=== PATIENT | female | born 1980 | race Caucasian/White ===

== ENCOUNTER 2016-09-17 21:35 | Emergency (ER) | payer OTHER ==
[2016-09-18] MEDS ORDERED: diphenhydrAMINE INJ 50MG/ML VIAL (J1200) As Ordered ONE (00:04)
[2016-09-18] MEDS ORDERED: METOCLOPRAMIDE INJ 10MG/2ML VIAL (J2765) As Ordered ONE (00:04)
--- NOTE | 2016-09-18 01:40 | REPUSA ---
Clinical history: . Findings: Real-time transabdominal and transvaginal ultrasound images of the pelvis were obtained. A single live intrauterine gestation is appreciated. A normal yolk sac is noted. The crown rump length measures 3.4 cm. heart rate measures 175 bpm. There is no evidence of a subchorionic hemorrhag e. An anteverted uterus is noted. The uterus demonstrates normal echotexture and echogenicity. The ri ght ovary measures 2.6 x 1.6 x 2.1 cm. The left ovary measures 2.9 x 2.1 x 2.3 cm. No adnexal masses are seen. Color Doppler flow is seen within both ovaries. There is no evidence of free fluid. Impression: Single live intrauterine measuring 10 weeks 2 days, with a heart rate of 175 bpm. Estimated due date is 04/14/2017.
--- NOTE | 2016-09-18 02:38 | EDDOCDS ---
Physician Documentation [facility] Name: Domonique Moses Age: 36 yrs Sex: Female : 1980 Arrival Date: 09/17/2016 Time: 21:35 Bed I3 / M3 Private MD: BONNIE OSBORN Disposition: 09/18/16 02:20 Discharged to Home/Self Care. Impression: Headache, Other specified related conditions. - Condition is Stable. - Discharge Instructions: General Headache Without Cause. - Medication Reconciliation, Local Pharmacy Hours form. - Follow up: Private Physician; When: 1 - 2 days; Reason: Recheck today's complaints, Continuance of care. - Problem is new. - Symptoms have improved. - Notes: FOLLOW UP WITH YOUR OB DOCTOR IN 1-2 DAYS, RETURN TO THE ER IF THE SYMPTOMS WORSEN OR BECOME CONCERNING Historical: - Allergies: Topamax; Imitrex; - Home Meds: 1. none - PMHx: Headaches; - PSHx: Tubal ligation; left pinky pin placement; - Social history: Smoking status: Patient states was never smoker of tobacco. No barriers to communication noted, The patient speaks fluent Belarusian, Speaks appropriately for age. - Family history: Not pertinent. - : The pt / caregiver states he / she is not on anticoagulants. Home medication list is obtained from the patient. - Exposure Risk Screening:: None identified. 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 3 in. (160.02 cm) (R); Pain 8/10; 09/18 02:30 BP 115 / 61; Pulse 85; Resp 18; Temp 98.3; Pulse Ox 97% ; Pain 4/10; ajs 09/17 21:37 Body Mass Index 28.34 (72.57 kg, 160.02 cm) gr2 MDM: 09/17 23:58 IV Saline Lock ordered. ck7 23:58 Metoclopramide 10 mg IV at 40 mg/hr once over 15 mins ordered. ck7 23:58 diphenhydrAMINE 25 mg IVP once ordered. ck7 23:58 NS 0.9% 1000 ml IV at bolus once ordered. ck7 23:58 Heart Tones ordered. ck7 09/18 00:19 US 1st trimester Ordered. EDMS 00:20 Financial registration complete. hs2 02:19 US 1st trimester Reviewed. ck7 Administered Medications: 00:20 Drug: Metoclopramide 10 mg [metoclopramide 5 mg/mL injection solution] Route: IV; Rate: dsf 40 mg/hr; Infused Over: 15 mins; Site: right antecubital; 00:20 Drug: diphenhydrAMINE 25 mg [diphenhydramine 50 mg/mL injection solution (0.5 mL)] dsf Route: IVP; Site: right antecubital; 00:20 Drug: NS 0.9% 1000 ml [sodium chloride 0.9 % injection solution] Route: IV; Rate: dsf bolus; Site: right antecubital; Signatures: Dispatcher [employer] EDWV Lowell De Dios, SHARIFA SKAGGS cz Aliya Francis RN RN sls1 Luis Enrique Gambino, RPA-C RPA-Cck7 Kelsie Bloom, Reg Reg hs2 Meron Escobedo RN dsf MTDD
--- NOTE | 2016-09-18 02:39 | EDDOCDS ---
Nurse's Notes [facility] Name: Domonique Moses Age: 36 yrs Sex: Female : 1980 Arrival Date: 09/17/2016 Time: 21:35 Bed I3 / M3 Private MD: BONNIE OSBORN Diagnosis: Headache;Other specified related conditions Presentation: 09/17 21:39 Presenting complaint: Patient states: headache for 24 hours pt has history of headaches cz this headache is more painful nauseated pt is 10 weeks . This patient has no additional risk factors. Adult Sepsis Screening: The patient does not have new or worsening altered mentation. Patient's respiratory rate is less than 22. Systolic blood pressure is greater than 100. Patient has a qSOFA score of 0- Negative Sepsis Screen. Suicide/Homicide risk assessment- the patient denies having any suicidal and/or homicidal ideations and does not present with any other emotional, behavioral or mental health complaints. Status: Patient is not a human services manager or dependent. Transition of care: patient was not received from another setting of care. 21:39 Acuity: KVNG Level 3 cz 21:39 Method Of Arrival: Walkin/Carried/Asstd cz Triage Assessment: 21:42 Headache History: This headache is more severe than any previous headaches the patient cz has experienced. General: Appears uncomfortable. Pain: Pain currently is 10 out of 10 on a pain scale. Pain: Pain began 1 day ago Also complains of nausea. HIV screening NA for this visit Offered previously. Neurological: No deficits noted. 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 none - PMHx: Headaches; - PSHx: Tubal ligation; left pinky pin placement; - Social history: Smoking status: Patient states was never smoker of tobacco. No barriers to communication noted, The patient speaks fluent Burmese, Speaks appropriately for age. - Family history: Not pertinent. - : The pt / caregiver states he / she is not on anticoagulants. Home medication list is obtained from the patient. - Exposure Risk Screening:: None identified. Screenin/18 02:35 Screening information is obtained from the patient. Fall risk: No risks identified. [facility] Assistance ADL's: requires no assistance with activities of daily living. Abuse/DV Screen: The patient / caregiver reports he/she is: not in a situation that causes fear, pain or injury. Nutritional screening: No deficits noted. Advance Directives: Further advance directive information is declined. home support is adequate. Assessment: 00:13 Adult Sepsis Screening: The patient does not have new or worsening altered mentation. dsf Patient's respiratory rate is less than 22. Systolic blood pressure is greater than 100. Patient has a qSOFA score of 0- Negative Sepsis Screen. General: Appears uncomfortable, Behavior is appropriate for age, cooperative. Pain: Location: left side of head Pain currently is 10 out of 10 on a pain scale. Quality of pain is described as throbbing, Pain began 2-3 days ago Aggravated by lights and noise. Neurological: Level of Consciousness is awake, alert. Cardiovascular: No deficits noted. Respiratory: Airway is patent Respiratory effort is even, unlabored, Respiratory pattern is regular, symmetrical. GI: Reports nausea, vomiting. Derm: Skin is pink, warm & dry. 00:18 General: Appears uncomfortable, Behavior is appropriate for age, cooperative, pleasant. ka4 Pain: Location: face and left supraclavicular area Pain currently is 10 out of 10 on a pain scale. Quality of pain is described as pressure, throbbing. Respiratory: Airway is patent Respiratory effort is even, unlabored, Respiratory pattern is regular, symmetrical. Derm: Skin is intact, is healthy with good turgor, Skin is pink, warm & dry. 01:14 General: Pt to ultra sound. [facility] 01:19 Reassessment: Patient appears in no apparent distress at this time. Pt returned from [facility] ultra sound tolerated without difficulty. Neurological: Level of Consciousness is awake, alert. Respiratory: No deficits noted. 02:35 General: Appears in no apparent distress, Discharge instructions reviewed with pt [facility] including follow up care, pt verbalizes understanding of all instructions. Pain: Denies pain. Neurological: Level of Consciousness is awake, alert. Vital Signs: 09/17 21:37 BP 128 / 86; Pulse 90; Resp 18 S; Temp 98.4(O); Pulse Ox 99% on R/A; Weight 72.57 kg gr2 (R); Height 5 ft. 3 in. (160.02 cm) (R); Pain 8/10; 09/18 02:30 BP 115 / 61; Pulse 85; Resp 18; Temp 98.3; Pulse Ox 97% ; Pain 4/10; ajs 09/17 21:37 Body Mass Index 28.34 (72.57 kg, 160.02 cm) gr2 Vitals: 09/17 21:37 Log In Time: September 17, 2016 at 21:37. gr2 ED Course: 21:36 Patient visited by Pedro Luis Sandoval. gr2 21:36 Patient moved to Waiting gr2 21:37 BONNIE OSBORN is Private Physician. gr2 21:39 Patient visited by Pedro Luis Sandoval. gr2 21:39 Patient moved to Pre RCE gr2 21:41 Triage Initiated cz 23:04 Patient moved to Triage 1 sls1 23:26 Luis Enrique Gambino RPA-C is PHCP. ck7 23:26 Michele Luther DO is Attending Physician. ck7 23:38 Patient visited by Luis Enrique Gambino RPA-C. ck7 23:59 Patient moved to I3 / M3 af2 09/18 00:14 Patient visited by Meron Escobedo RN. dsf 00:17 Inserted saline lock: 20 gauge in left antecubital area The patient tolerated the ka4 procedure well. 00:18 Patient visited by Nisreen Thomason LPN. ka4 00:19 Patient visited by Nisreen Thomason LPN. ka4 01:01 Patient moved to Ultrasound dmg 01:19 Patient visited by Aliya Francis RN. sls1 01:25 Patient moved to I3 / M3 dmg 02:10 US 1st trimester Returned. EDMS 02:19 Patient visited by Luis Enrique Gambino RPA-C. ck7 02:30 Patient visited by Hiwot Monterroso. ajs 02:35 The patient / caregiver is instructed regarding the plan of care and ED course. Patient slsVaughn has correct armband on for positive identification. 02:35 Discontinued lock intact, bleeding controlled, pressure dressing applied, No sls1 redness/swelling at site. No procedures done that require assistance. Administered Medications: 00:20 Drug: Metoclopramide 10 mg [metoclopramide 5 mg/mL injection solution] Route: IV; Rate: dsf 40 mg/hr; Infused Over: 15 mins; Site: right antecubital; 00:20 Drug: diphenhydrAMINE 25 mg [diphenhydramine 50 mg/mL injection solution (0.5 mL)] dsf Route: IVP; Site: right antecubital; 00:20 Drug: NS 0.9% 1000 ml [sodium chloride 0.9 % injection solution] Route: IV; Rate: dsf bolus; Site: right antecubital; Order Results: Radiology Order: US 1st trimester Test: US 1st trimester REASON FOR EXAMINATION: R/O DEMISE; ; Clinical history: .; Findings: Real-time transabdominal and transvaginal ultrasound images of the pelvis were obtained. A; single live intrauterine gestation is appreciated. A normal yolk sac is noted. The crown rump length; measures 3.4 cm. heart rate measures 175 bpm. There is no evidence of a subchorionic hemorrhag; e. An anteverted uterus is noted. The uterus demonstrates normal echotexture and echogenicity. The ri; ght ovary measures 2.6 x 1.6 x 2.1 cm. The left ovary measures 2.9 x 2.1 x 2.3 cm. No adnexal masses; are seen. Color Doppler flow is seen within both ovaries. There is no evidence of free fluid.; Impression: Single live intrauterine measuring 10 weeks 2 days, with a heart rate of; 175 bpm. Estimated due date is 04/14/2017.; ; Outcome: 02:20 Discharge ordered by Provider. ck7 02:35 Discharge Assessment: Patient awake, alert and oriented x 3. No cognitive and/or sls1 functional deficits noted. Patient verbalized understanding of disposition instructions. patient administered narcotics - no. The following High Risk Discharge criteria are identified: None. Discharged to home ambulatory, with significant other. Condition: stable. Discharge instructions given to patient, Instructed on discharge instructions, follow up and referral plans. medication usage, Demonstrated understanding of instructions, Pt was receptive of discharge instructions/ teaching. CT Study completed. Ultrasound Study completed. Property :Personal belongings accompany Pt. 02:37 Patient left the ED. sls1 Signatures: Dispatcher [employer] EDMS Lowell De Dios RN RN cz Gunn, Deanne dmg Escobedo,Meron,RN RN katief Hiwot Monterroso Shannon RN RN sls1 Luis Enrique Gambino, RPA-C RPA-Cck7 Pedro Luis Sandoval gr2 Nisreen Thomason,KRISTINE ACEVEDON ka4 Karo SnyderRN RN af2 Corrections: (The following items were deleted from the chart) 09/17 21:44 21:39 Presenting complaint: Patient states: headache for 24 hours pt has history of cz headaches this headache is more painful nauseated cz MTDD
--- NOTE | 2016-09-20 03:39 | EDDOCDS ---
Physician Documentation [facility] Name: Domonique Moses Age: 36 yrs Sex: Female : 1980 Arrival Date: 09/17/2016 Time: 21:35 Bed I3 / M3 Private MD: BONNIE OSBORN Disposition: 09/18/16 02:20 Discharged to Home/Self Care. Impression: Headache, Other specified related conditions. - Condition is Stable. - Discharge Instructions: General Headache Without Cause. - Medication Reconciliation, Local Pharmacy Hours form. - Follow up: Private Physician; When: 1 - 2 days; Reason: Recheck today's complaints, Continuance of care. - Problem is new. - Symptoms have improved. - Notes: FOLLOW UP WITH YOUR OB DOCTOR IN 1-2 DAYS, RETURN TO THE ER IF THE SYMPTOMS WORSEN OR BECOME CONCERNING Historical: - Allergies: Topamax; Imitrex; - Home Meds: 1. none - PMHx: Headaches; - PSHx: Tubal ligation; left pinky pin placement; - Social history: Smoking status: Patient states was never smoker of tobacco. No barriers to communication noted, The patient speaks fluent Mozambican, Speaks appropriately for age. - Family history: Not pertinent. - : The pt / caregiver states he / she is not on anticoagulants. Home medication list is obtained from the patient. - Exposure Risk Screening:: None identified. 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 3 in. (160.02 cm) (R); Pain 8/10; 09/18 02:30 BP 115 / 61; Pulse 85; Resp 18; Temp 98.3; Pulse Ox 97% ; Pain 4/10; ajs 09/17 21:37 Body Mass Index 28.34 (72.57 kg, 160.02 cm) gr2 MDM: 09/17 23:58 IV Saline Lock ordered. ck7 23:58 Metoclopramide 10 mg IV at 40 mg/hr once over 15 mins ordered. ck7 23:58 diphenhydrAMINE 25 mg IVP once ordered. ck7 23:58 NS 0.9% 1000 ml IV at bolus once ordered. ck7 23:58 Heart Tones ordered. ck7 09/18 00:19 US 1st trimester Ordered. EDMS 00:20 Financial registration complete. hs2 02:19 US 1st trimester Reviewed. ck7 04:12 [facility] Payment Agreement was scanned into [employer] and attached to record. hs2 09:11 T-Sheet-- Draft Copy was scanned into [employer] and attached to record. gb Administered Medications: 00:20 Drug: Metoclopramide 10 mg [metoclopramide 5 mg/mL injection solution] Route: IV; Rate: dsf 40 mg/hr; Infused Over: 15 mins; Site: right antecubital; 00:20 Drug: diphenhydrAMINE 25 mg [diphenhydramine 50 mg/mL injection solution (0.5 mL)] dsf Route: IVP; Site: right antecubital; 00:20 Drug: NS 0.9% 1000 ml [sodium chloride 0.9 % injection solution] Route: IV; Rate: dsf bolus; Site: right antecubital; Signatures: Dispatcher [employer] EDTX Lowell De Dios, RN RN Nuria Diego, Reg Reg gb Aliya Francis RN RN sls1 Luis Enrique Gambino, RPA-C RPA-Cck7 Kelsie Bloom, Reg Reg hs2 Meron Escobedo RN dsf The chart was reviewed and I authenticate all verbal orders and agree with the evaluation and treatment provided.Attachments: 04:12 [facility] Payment Agreement hs2 09:11 T-Sheet-- Draft Copy gb Chart Complete MTDD
--- NOTE | 2016-09-20 03:39 | EDDOCDS ---
Nurse's Notes [facility] Name: Domonique Moses Age: 36 yrs Sex: Female : 1980 Arrival Date: 09/17/2016 Time: 21:35 Bed I3 / M3 Private MD: BONNIE OSBORN Diagnosis: Headache;Other specified related conditions Presentation: 09/17 21:39 Presenting complaint: Patient states: headache for 24 hours pt has history of headaches cz this headache is more painful nauseated pt is 10 weeks . This patient has no additional risk factors. Adult Sepsis Screening: The patient does not have new or worsening altered mentation. Patient's respiratory rate is less than 22. Systolic blood pressure is greater than 100. Patient has a qSOFA score of 0- Negative Sepsis Screen. Suicide/Homicide risk assessment- the patient denies having any suicidal and/or homicidal ideations and does not present with any other emotional, behavioral or mental health complaints. Status: Patient is not a field service specialist or dependent. Transition of care: patient was not received from another setting of care. 21:39 Acuity: KVNG Level 3 cz 21:39 Method Of Arrival: Walkin/Carried/Asstd cz Triage Assessment: 21:42 Headache History: This headache is more severe than any previous headaches the patient cz has experienced. General: Appears uncomfortable. Pain: Pain currently is 10 out of 10 on a pain scale. Pain: Pain began 1 day ago Also complains of nausea. HIV screening NA for this visit Offered previously. Neurological: No deficits noted. 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 none - PMHx: Headaches; - PSHx: Tubal ligation; left pinky pin placement; - Social history: Smoking status: Patient states was never smoker of tobacco. No barriers to communication noted, The patient speaks fluent [place]ar[place], Speaks appropriately for age. - Family history: Not pertinent. - : The pt / caregiver states he / she is not on anticoagulants. Home medication list is obtained from the patient. - Exposure Risk Screening:: None identified. Screenin/18 02:35 Screening information is obtained from the patient. Fall risk: No risks identified. [facility] Assistance ADL's: requires no assistance with activities of daily living. Abuse/DV Screen: The patient / caregiver reports he/she is: not in a situation that causes fear, pain or injury. Nutritional screening: No deficits noted. Advance Directives: Further advance directive information is declined. home support is adequate. Assessment: 00:13 Adult Sepsis Screening: The patient does not have new or worsening altered mentation. dsf Patient's respiratory rate is less than 22. Systolic blood pressure is greater than 100. Patient has a qSOFA score of 0- Negative Sepsis Screen. General: Appears uncomfortable, Behavior is appropriate for age, cooperative. Pain: Location: left side of head Pain currently is 10 out of 10 on a pain scale. Quality of pain is described as throbbing, Pain began 2-3 days ago Aggravated by lights and noise. Neurological: Level of Consciousness is awake, alert. Cardiovascular: No deficits noted. Respiratory: Airway is patent Respiratory effort is even, unlabored, Respiratory pattern is regular, symmetrical. GI: Reports nausea, vomiting. Derm: Skin is pink, warm & dry. 00:18 General: Appears uncomfortable, Behavior is appropriate for age, cooperative, pleasant. ka4 Pain: Location: face and left supraclavicular area Pain currently is 10 out of 10 on a pain scale. Quality of pain is described as pressure, throbbing. Respiratory: Airway is patent Respiratory effort is even, unlabored, Respiratory pattern is regular, symmetrical. Derm: Skin is intact, is healthy with good turgor, Skin is pink, warm & dry. 01:14 General: Pt to ultra sound. [facility] 01:19 Reassessment: Patient appears in no apparent distress at this time. Pt returned from [facility] ultra sound tolerated without difficulty. Neurological: Level of Consciousness is awake, alert. Respiratory: No deficits noted. 02:35 General: Appears in no apparent distress, Discharge instructions reviewed with pt [facility] including follow up care, pt verbalizes understanding of all instructions. Pain: Denies pain. Neurological: Level of Consciousness is awake, alert. Vital Signs: 09/17 21:37 BP 128 / 86; Pulse 90; Resp 18 S; Temp 98.4(O); Pulse Ox 99% on R/A; Weight 72.57 kg gr2 (R); Height 5 ft. 3 in. (160.02 cm) (R); Pain 8/10; 09/18 02:30 BP 115 / 61; Pulse 85; Resp 18; Temp 98.3; Pulse Ox 97% ; Pain 4/10; ajs 09/17 21:37 Body Mass Index 28.34 (72.57 kg, 160.02 cm) gr2 Vitals: 09/17 21:37 Log In Time: September 17, 2016 at 21:37. gr2 ED Course: 21:36 Patient visited by Pedro Luis Sandoval. gr2 21:36 Patient moved to Waiting gr2 21:37 BONNIE OSBORN is Private Physician. gr2 21:39 Patient visited by Pedro Luis Sandoval. gr2 21:39 Patient moved to Pre RCE gr2 21:41 Triage Initiated cz 23:04 Patient moved to Triage 1 sls1 23:26 Luis Enrique Gambino RPA-C is PHCP. ck7 23:26 Michele Luther DO is Attending Physician. ck7 23:38 Patient visited by Luis Enrique Gambino RPA-C. ck7 23:59 Patient moved to I3 / M3 af2 09/18 00:14 Patient visited by Meron Escobedo RN. dsf 00:17 Inserted saline lock: 20 gauge in left antecubital area The patient tolerated the ka4 procedure well. 00:18 Patient visited by Nisreen Thomason LPN. ka4 00:19 Patient visited by Nisreen Thomason LPN. ka4 01:01 Patient moved to Ultrasound dmg 01:19 Patient visited by Aliya Francis RN. sls1 01:25 Patient moved to I3 / M3 dmg 02:10 US 1st trimester Returned. EDMS 02:19 Patient visited by Luis Enrique Gambino RPA-C. ck7 02:30 Patient visited by Hiwot Monterroso. ajs 02:35 The patient / caregiver is instructed regarding the plan of care and ED course. Patient sls1 has correct armband on for positive identification. 02:35 Discontinued lock intact, bleeding controlled, pressure dressing applied, No sls1 redness/swelling at site. No procedures done that require assistance. 04:12 [facility] Payment Agreement was scanned into [employer] and attached to record. hs2 09:11 T-Sheet-- Draft Copy was scanned into [employer] and attached to record. gb Administered Medications: 00:20 Drug: Metoclopramide 10 mg [metoclopramide 5 mg/mL injection solution] Route: IV; Rate: dsf 40 mg/hr; Infused Over: 15 mins; Site: right antecubital; 00:20 Drug: diphenhydrAMINE 25 mg [diphenhydramine 50 mg/mL injection solution (0.5 mL)] dsf Route: IVP; Site: right antecubital; 00:20 Drug: NS 0.9% 1000 ml [sodium chloride 0.9 % injection solution] Route: IV; Rate: dsf bolus; Site: right antecubital; Order Results: Radiology Order: US 1st trimester Test: US 1st trimester REASON FOR EXAMINATION: R/O DEMISE; ; Clinical history: .; Findings: Real-time transabdominal and transvaginal ultrasound images of the pelvis were obtained. A; single live intrauterine gestation is appreciated. A normal yolk sac is noted. The crown rump length; measures 3.4 cm. heart rate measures 175 bpm. There is no evidence of a subchorionic hemorrhag; e. An anteverted uterus is noted. The uterus demonstrates normal echotexture and echogenicity. The ri; ght ovary measures 2.6 x 1.6 x 2.1 cm. The left ovary measures 2.9 x 2.1 x 2.3 cm. No adnexal masses; are seen. Color Doppler flow is seen within both ovaries. There is no evidence of free fluid.; Impression: Single live intrauterine measuring 10 weeks 2 days, with a heart rate of; 175 bpm. Estimated due date is 04/14/2017.; ; Outcome: 02:20 Discharge ordered by Provider. ck7 02:35 Discharge Assessment: Patient awake, alert and oriented x 3. No cognitive and/or sls1 functional deficits noted. Patient verbalized understanding of disposition instructions. patient administered narcotics - no. The following High Risk Discharge criteria are identified: None. Discharged to home ambulatory, with significant other. Condition: stable. Discharge instructions given to patient, Instructed on discharge instructions, follow up and referral plans. medication usage, Demonstrated understanding of instructions, Pt was receptive of discharge instructions/ teaching. CT Study completed. Ultrasound Study completed. Property :Personal belongings accompany Pt. 02:37 Patient left the ED. sls1 Signatures: Dispatcher [employer] EDLowell Harding, RN RN cz Ari, Nuria Otero, Reg Reg gb Meron Escobedo,RN RN Hiwot Lee Shannon RN RN sls1 Luis Enrique Gambino, RPA-C RPA-Cck7 Pedro Luis Sandoval 2 Nisreen Thomason LPN LPN ka4 Karo Snyder RN RN af2 Kelsie Bloom, Reg Reg hs2 Corrections: (The following items were deleted from the chart) 09/17 21:44 21:39 Presenting complaint: Patient states: headache for 24 hours pt has history of cz headaches this headache is more painful nauseated cz Chart Complete MTDD
--- NOTE | 2016-09-20 03:39 | EDDOCDS ---
Physician Documentation [facility] Name: Domonique Moses Age: 36 yrs Sex: Female : 1980 Arrival Date: 09/17/2016 Time: 21:35 Bed I3 / M3 Private MD: BONNIE OSBORN Disposition: 09/18/16 02:20 Discharged to Home/Self Care. Impression: Headache, Other specified related conditions. - Condition is Stable. - Discharge Instructions: General Headache Without Cause. - Medication Reconciliation, Local Pharmacy Hours form. - Follow up: Private Physician; When: 1 - 2 days; Reason: Recheck today's complaints, Continuance of care. - Problem is new. - Symptoms have improved. - Notes: FOLLOW UP WITH YOUR OB DOCTOR IN 1-2 DAYS, RETURN TO THE ER IF THE SYMPTOMS WORSEN OR BECOME CONCERNING Historical: - Allergies: Topamax; Imitrex; - Home Meds: 1. none - PMHx: Headaches; - PSHx: Tubal ligation; left pinky pin placement; - Social history: Smoking status: Patient states was never smoker of tobacco. No barriers to communication noted, The patient speaks fluent [place]orese, Speaks appropriately for age. - Family history: Not pertinent. - : The pt / caregiver states he / she is not on anticoagulants. Home medication list is obtained from the patient. - Exposure Risk Screening:: None identified. MANAGER MUTUAL FUND: 09/17 21:42 LMP 07/07/2016, Verified, EDC 04/13/2017, Gestational age from LMP: 10 weeks 3 cz days Vital Signs: 21:37 BP 128 / 86; Pulse 90; Resp 18 S; Temp 98.4(O); Pulse Ox 99% on R/A; Weight 72.57 kg / gr2 159.99 lbs (R); Height 5 ft. 3 in. (160.02 cm) (R); Pain 8/10; 09/18 02:30 BP 115 / 61; Pulse 85; Resp 18; Temp 98.3; Pulse Ox 97% ; Pain 4/10; ajs 09/17 21:37 Body Mass Index 28.34 (72.57 kg, 160.02 cm) gr2 MDM: 09/17 23:58 IV Saline Lock ordered. ck7 23:58 Metoclopramide 10 mg IV at 40 mg/hr once over 15 mins ordered. ck7 23:58 diphenhydrAMINE 25 mg IVP once ordered. ck7 23:58 NS 0.9% 1000 ml IV at bolus once ordered. ck7 23:58 Heart Tones ordered. ck7 09/18 00:19 US 1st trimester Ordered. EDMS 00:20 Financial registration complete. hs2 02:19 US 1st trimester Reviewed. ck7 04:12 [facility] Payment Agreement was scanned into [employer] and attached to record. hs2 09:11 T-Sheet-- Draft Copy was scanned into [employer] and attached to record. gb Administered Medications: 00:20 Drug: Metoclopramide 10 mg [metoclopramide 5 mg/mL injection solution] Route: IV; Rate: dsf 40 mg/hr; Infused Over: 15 mins; Site: right antecubital; 00:20 Drug: diphenhydrAMINE 25 mg [diphenhydramine 50 mg/mL injection solution (0.5 mL)] dsf Route: IVP; Site: right antecubital; 00:20 Drug: NS 0.9% 1000 ml [sodium chloride 0.9 % injection solution] Route: IV; Rate: dsf bolus; Site: right antecubital; Signatures: Dispatcher [employer] EDAL Lowell De Dios, RN RN Nuria Diego, Reg Reg gb Aliya Francis RN RN sls1 Luis Enrique Gambino, RPA-C RPA-Cck7 Kelsie Bloom, Reg Reg hs2 Meron Escobedo RN dsf The chart was reviewed and I authenticate all verbal orders and agree with the evaluation and treatment provided.Attachments: 04:12 [facility] Payment Agreement hs2 09:11 T-Sheet-- Draft Copy gb Chart Complete MTDD
== END 2016-09-18 02:37 | disposition home or self-care (01) ==
LOC: M ED 21:35
DX: O99.89 Other specified diseases and conditions complicating pregnancy, childbirth and the puerperium (principal); R51 Headache; O26.891 Other specified pregnancy related conditions, first trimester; Z3A.10 10 weeks gestation of pregnancy; Z88.8 Allergy status to other drugs, medicaments and biological substances
CPT/HCPCS: 76801; 96374; 96375; 99284; J1200; J2765

== ENCOUNTER → 2016-09-24 | Outpatient (CLI) | payer OTHER ==
[2016-09-24 18:47] LABS: BASO % 0.4 % (0.0-1.0); EOS # 0.1 K/mm3 (0.0-0.50); EOS % 1.3 % (0.0-3.0); LARGE UNSTAINED CELL # 0.1 K/mm3 (0.0-0.4); LARGE UNSTAINED CELL % 1.7 % (0.0-4.0); LYMPH # 1.6 K/mm3 (1.5-4.5); LYMPH % 20.9 % (24.0-44.0); MEAN CORPUSCULAR HEMOGLOBIN 29.2 pg (27.0-33.0); MEAN CORPUSCULAR HGB CONC 33.8 g/dl (32.0-36.5); MEAN CORPUSCULAR VOLUME 86.4 fl (80.0-96.0); MONO # 0.5 K/mm3 (0.0-0.8); NEUTROPHILS # 5.3 K/mm3 (1.8-7.7); NEUTROPHILS % 69.7 % (36.0-66.0); PLATELET COUNT, AUTOMATED 324 k/mm3 (150-450); RED CELL DISTRIBUTION WIDTH 12.3 % (11.5-14.5); WHITE BLOOD COUNT 7.6 K/mm3 (4.0-10.0)
[2016-09-25 09:22] LABS: HIV SCRN NEGATIVE (NEGATIVE); HIV SCRN1 NEGATIVE (NEGATIVE)
[2016-09-25 09:29] LABS: CONTROL LINE INT CTR LINE PRESENT
[2016-09-25 09:57] LABS: HBsAg Prenatal NEGATIVE (NEGATIVE)
== END | disposition home or self-care (01) ==
LOC: M SMT 10:57
PROVIDERS: ATTEND Obstetrics & Gynecology
DX: Z34.81 Encounter for supervision of other normal pregnancy, first trimester (principal); Z36 Encounter for antenatal screening of mother; Z3A.00 Weeks of gestation of pregnancy not specified

== ENCOUNTER → 2016-10-22 | Outpatient (REF) | payer OTHER | LOC: M LAB REF 13:01 | PROVIDERS: ATTEND Advanced Practice Midwife | DX: Z34.82 Encounter for supervision of other normal pregnancy, second trimester (principal) ==

== ENCOUNTER → 2016-11-11 | Outpatient (REF) | payer OTHER ==
[2016-11-11 16:03] LABS: ALBUMIN 2.9 GM/DL (3.2-5.2); ALBUMIN/GLOBULIN RATIO 0.78 (1.00-1.93); ALKALINE PHOSPHATASE 102 U/L (45-117); ALT/SGPT 22 U/L (12-78); AST/SGOT 16 U/L (15-37); BILIRUBIN,DIRECT < 0.1 MG/DL (0.0-0.2); BILIRUBIN,TOTAL 0.2 MG/DL (0.2-1.0); TOTAL PROTEIN 6.6 GM/DL (6.4-8.2)
[2016-11-15 00:10] LABS: HEPATITIS C QUANTITATION 514860 IU/mL (.)
== END ==
LOC: M SFHCPLAZ 13:34
PROVIDERS: ATTEND Internal Medicine Infectious Disease
DX: B18.2 Chronic viral hepatitis C (principal)

== ENCOUNTER → 2016-11-19 | Outpatient (CLI) | payer OTHER ==
--- NOTE | 2016-11-20 08:20 | REP ---
Clinical: Anatomical evaluation. Comparison: 09/18/2016 . Findings: Examination demonstrates a single live intrauterine in breech presentation. motion is identified by technologist. Placenta is noted posterior and low-lying approximately 1.9 cm from the closed internal os and grade zero without evidence for placenta previa or abruption. Amniotic fluid volume is normal. Cervix measures 3.6 cm in length and appears closed. No evidence for nuchal cord. Gestational age by first ultrasound 19 weeks 1 day with GRETEL 04/14/2017 . Gestational age by current measurements 19 weeks 3 days with GRETEL 04/12/2017 . FHR equals 157 beats per minute. BPD 4.4 cm 19 weeks 3 days HC 16.4 cm 19 weeks 1 day AC 15.3 cm 90 weeks 4 days FL 3.1 cm 19 weeks 4 days HL 2.8 cm 19 weeks 1 day HC/AC ratio 1.07 Estimated weight 323 grams ( 80th percentile). Anatomical assessment demonstrates normal structures including cranium, choroid plexus, cavum, cerebellum/posterior fossa, facial features, lungs, four-chamber heart/ventricular outflow tracts, diaphragm, stomach, cord insertion/three-vessel cord, kidneys/bladder, spine, and extremities. Impression: 1. Single live intrauterine in cephalic presentation demonstrating appropriate interval growth. 2. Low-lying posterior placenta 1.9 cm from the internal os. 3. Anatomical assessment complete and normal. Signed by Davis Leonard MD 11/19/2016 01:10 P
== END ==
LOC: M SMT 11:24
PROVIDERS: ATTEND Advanced Practice Midwife
DX: O32.1XX0 Maternal care for breech presentation, not applicable or unspecified (principal); Z36 Encounter for antenatal screening of mother; Z3A.19 19 weeks gestation of pregnancy

== ENCOUNTER → 2017-01-13 | Outpatient (CLI) | payer OTHER ==
--- NOTE | 2017-01-13 13:19 | REP ---
Clinical: Low-lying placenta for follow-up. Comparison: 11/19/2016 . Findings: Examination demonstrates a single live intrauterine in cephalic presentation. motion is identified by technologist. Placenta is noted posteriorly and grade zero measuring approximately 1.8 cm from the closed internal os. Amniotic fluid volume is normal. Cervix measures 4.7 cm in length and appears closed. Gestational age by LMP 27 weeks 0 days with GRETEL 04/14/2017 . FHR equals 147 beats per minute. Impression: Single live intrauterine in cephalic presentation. Posterior placenta remains approximately 1.8 cm from the closed internal os. Signed by Davis Leonard MD 01/13/2017 01:11 P
== END ==
LOC: M SMT 11:29
PROVIDERS: ATTEND Advanced Practice Midwife
DX: Z34.82 Encounter for supervision of other normal pregnancy, second trimester (principal); Z36 Encounter for antenatal screening of mother; Z3A.27 27 weeks gestation of pregnancy

== ENCOUNTER → 2017-02-04 | Outpatient (CLI) | payer OTHER ==
[2017-02-04 10:58] LABS: BASO % 0.2 % (0.0-1.0); EOS # 0.1 K/mm3 (0.0-0.50); EOS % 0.8 % (0.0-3.0); MEAN CORPUSCULAR HGB CONC 34.1 g/dl (32.0-36.5); MONO # 0.6 K/mm3 (0.0-0.8); MONO % 5.7 % (0.0-5.0); NEUTROPHILS # 7.6 K/mm3 (1.8-7.7); WHITE BLOOD COUNT 10.3 K/mm3 (4.0-10.0)
== END ==
LOC: M LAB 09:35
PROVIDERS: ATTEND Obstetrics & Gynecology
DX: Z36 Encounter for antenatal screening of mother (principal); Z3A.27 27 weeks gestation of pregnancy

== ENCOUNTER → 2017-02-06 | Outpatient (CLI) | payer OTHER | LOC: M LAB 06:47 | PROVIDERS: ATTEND Family Medicine | DX: O98.413 Viral hepatitis complicating pregnancy, third trimester (principal); Z36 Encounter for antenatal screening of mother; Z3A.00 Weeks of gestation of pregnancy not specified ==

== ENCOUNTER → 2018-02-19 | Outpatient (REF) | payer OTHER ==
[2018-02-19 20:24] LABS: ALT/SGPT 60 U/L (12-78); AST/SGOT 31 U/L (7-37)
[2018-02-19 20:25] LABS: ALBUMIN 3.7 GM/DL (3.2-5.2); ALBUMIN/GLOBULIN RATIO 0.95 (1.00-1.93); ALKALINE PHOSPHATASE 115 U/L (45-117); BILIRUBIN,DIRECT < 0.1 MG/DL (0.0-0.2); BILIRUBIN,TOTAL 0.4 MG/DL (0.2-1.0); MAGNESIUM LEVEL 2.4 MG/DL (1.8-2.4); TOTAL PROTEIN 7.6 GM/DL (6.4-8.2)
[2018-02-24 10:21] LABS: HEPATITIS C QUANTITATION 1127700 IU/mL (.)
== END ==
LOC: M SFHCLERA 16:25
DX: R12 Heartburn (principal); B18.2 Chronic viral hepatitis C

== ENCOUNTER → 2018-05-14 | Outpatient (REF) | payer OTHER ==
[2018-05-14 14:59] LABS: ALBUMIN 3.8 GM/DL (3.2-5.2); ALBUMIN/GLOBULIN RATIO 1.03 (1.00-1.93); ALKALINE PHOSPHATASE 144 U/L (45-117); ALT/SGPT 19 U/L (12-78); AST/SGOT 12 U/L (7-37); BILIRUBIN,DIRECT 0.1 MG/DL (0.0-0.2); BILIRUBIN,TOTAL 0.4 MG/DL (0.2-1.0); TOTAL PROTEIN 7.5 GM/DL (6.4-8.2)
[2018-05-18 14:17] LABS: HEPATITIS C QUANTITATION HCV Not Detected IU/mL (.)
== END ==
LOC: M SFHCPLAZ 10:55
DX: B18.2 Chronic viral hepatitis C (principal)

== ENCOUNTER 2018-07-05 20:36 | Emergency (ER) | payer OTHER ==
[2018-07-05] MEDS: METOCLOPRAMIDE INJ 10MG/2ML VIAL (J2765) IV (21:22)
[2018-07-05] MEDS: KETOROLAC 30 MG/ML VIAL (J1885) IV (21:22)
[2018-07-05] MEDS: diphenhydrAMINE INJ 50MG/ML VIAL (J1200) IV (21:23)
[2018-07-05] MEDS: NS 1,000 ML IV (21:23)
== END 2018-07-05 22:39 | disposition home or self-care (01) ==
LOC: M ED 20:36
DX: G43.909 Migraine, unspecified, not intractable, without status migrainosus (principal); R21 Rash and other nonspecific skin eruption; Z88.0 Allergy status to penicillin; Z88.8 Allergy status to other drugs, medicaments and biological substances
CPT/HCPCS: J1200

== ENCOUNTER → 2019-02-19 | Outpatient (CLI) | payer OTHER ==
[~2019-02-19] MED LIST: E-Z-GAS II EFFERVESCENT PACKET (SODIUM BICARB./CITRIC ACID/SIMETHICONE) As Ordered ONE; E-Z-HD 98% w/w 340GM SUSP BTL As Ordered ONE; E-Z-PAQUE 96% w/w SUSP 176GM BTL As Ordered ONE; REGL10TA6 PO
--- NOTE | 2019-02-20 11:59 | REP ---
Examination Requested: Esophagram Barium Swallow Reason For Exam/Comment: Dysphasia Esophagram: The procedure was performed ADELINA Younger, under the direct supervision of Dr. Ruth. The images were reviewed with Dr. Ruth. A single PA chest x-ray is submitted as a dot compliance manager film. The superior mediastinal structures are midline. The heart size is within normal limits. The lungs are clear. Liquid barium and gas producing granules were given in the erect position as well as liquid barium in the prone oblique position, in order to perform a double contrast esophagram examination. Oral and pharyngeal stages of the examination were unremarkable. Esophageal transport is efficient and there is no esophagitis, stricture, or mucosal ring noted. There is no hiatal hernia noted. No gastroesophageal reflux was identified. Impression: 1. Unremarkable esophagram. Fluoroscopic exposure time is 0.4 minutes. Fluoroscopic images are performed with last image hold technology. These images require no additional radiation. Reviewed by ADELINA Wolf 02/19/2019 03:58 P Electronically Signed by Esvin Ruth MD 02/20/2019 11:51 A
== END ==
LOC: M RAD 11:24
PROVIDERS: ATTEND Family Medicine
DX: R13.10 Dysphagia, unspecified (principal)

== ENCOUNTER → 2019-02-19 | Outpatient (CLI) | payer OTHER ==
[~2019-02-19] MED LIST changes: -E-Z-GAS II EFFERVESCENT PACKET (SODIUM BICARB./CITRIC ACID/SIMETHICONE) As Ordered ONE; -E-Z-HD 98% w/w 340GM SUSP BTL As Ordered ONE; -E-Z-PAQUE 96% w/w SUSP 176GM BTL As Ordered ONE
[2019-02-19 19:36] LABS: BASO # 0.1 10^3/uL (0.0-0.2); BASO % 0.6 % (0.0-1.0); EOS # 0.2 10^3/uL (0.0-0.50); HEMATOCRIT 41.1 % (36.0-47.0); LYMPH # 2.3 10^3/uL (1.5-4.5); LYMPH % 24.8 % (24.0-44.0); MEAN CORPUSCULAR HEMOGLOBIN 29.7 pg (27.0-33.0); MEAN CORPUSCULAR HGB CONC 34.1 g/dl (32.0-36.5); MEAN CORPUSCULAR VOLUME 87.1 fl (80.0-96.0); MONO # 0.7 10^3/uL (0.0-0.8); MONO % 7.4 % (0.0-5.0); NEUTROPHILS # 6.1 10^3/uL (1.8-7.7); PLATELET COUNT, AUTOMATED 340 10^3/uL (150-450); RED BLOOD COUNT 4.72 10^6/uL (4.00-5.40); WHITE BLOOD COUNT 9.4 10^3/uL (4.0-10.0)
== END ==
LOC: M WUC 15:37
PROVIDERS: ATTEND Family Medicine
DX: D72.829 Elevated white blood cell count, unspecified (principal)

== ENCOUNTER → 2019-02-25 | Outpatient (REF) | payer OTHER | LOC: M SFHCLERA 15:12 | PROVIDERS: ATTEND Family Medicine | DX: Z53.9 Procedure and treatment not carried out, unspecified reason (principal); M25.50 Pain in unspecified joint; L64.9 Androgenic alopecia, unspecified ==

== ENCOUNTER → 2019-02-26 | Outpatient (CLI) | payer OTHER ==
--- NOTE | 2019-02-26 12:15 | REP ---
Clinical: Polyarthralgia. Technique: Single AP weightbearing view of the bilateral knees. Findings: Examination appears normal and symmetric. Impression: Normal exam. Electronically Signed by Davis Leonard MD 02/26/2019 12:06 P
--- NOTE | 2019-02-26 12:32 | REP ---
Clinical: Polyarthralgia. Technique: AP, lateral, bilateral oblique views of the right and left hand. Findings: Bilateral hands are normal for age and without osteoarthritic or inflammatory arthritic changes appreciated. Impression: Normal examination. Electronically Signed by Davis Leonard MD 02/26/2019 12:24 P
[2019-02-26 13:35] LABS: C REACTIVE PROTEIN QUANTITATIV 0.33 MG/DL (0.00-0.30); FERRITIN 46 NG/ML (8-252); IRON (FE) 105 UG/DL (50-170); PERCENT SATURATION 28.2 % (13.2-45.0); RHEUMATOID FACTOR QUANT < 10.0 IU/ML (<15.0); TOTAL IRON BINDING CAPACITY 373 UG/DL (250-450)
[2019-03-03 14:34] LABS: ANA (HEP2) Positive (.); ANTI DS-DNA AB <1:10 titer (.); CYCLIC CITRULLINATED PEPTIDE 2 units (0-19)
== END ==
LOC: M SMT 10:49
PROVIDERS: ATTEND Family Medicine
DX: M25.50 Pain in unspecified joint (principal); L64.9 Androgenic alopecia, unspecified

== ENCOUNTER → 2021-01-18 | Outpatient (CLI) | payer OTHER | LOC: M LRY 15:36 | PROVIDERS: ATTEND Family Medicine | DX: Z53.9 Procedure and treatment not carried out, unspecified reason (principal) ==

== ENCOUNTER → 2021-02-20 | Outpatient (REF) | payer OTHER | LOC: M SFHCLERA 13:21 | PROVIDERS: ATTEND Nurse Practitioner Family | DX: N64.4 Mastodynia (principal) ==

== ENCOUNTER → 2021-02-23 | Outpatient (REF) | payer OTHER ==
[2021-02-23 13:46] LABS: BASO % 0.4 % (0.0-1.0); EOS # 0.1 10^3/uL (0.0-0.5); EOS % 1.7 % (0.0-3.0); HEMATOCRIT 41.5 % (36.0-47.0); HEMOGLOBIN 13.4 g/dl (12.0-15.5); LYMPH # 1.7 10^3/uL (1.5-5.0); LYMPH % 23.3 % (24.0-44.0); MEAN CORPUSCULAR HEMOGLOBIN 28.2 pg (27.0-33.0); MEAN CORPUSCULAR HGB CONC 32.3 g/dl (32.0-36.5); MEAN CORPUSCULAR VOLUME 87.2 fl (80.0-96.0); MONO # 0.7 10^3/uL (0.0-0.8); MONO % 9.4 % (2.0-8.0); NEUTROPHILS # 4.7 10^3/uL (1.5-8.5); NEUTROPHILS % 64.9 % (36.0-66.0); PLATELET COUNT, AUTOMATED 307 10^3/uL (150-450); RED BLOOD COUNT 4.76 10^6/uL (4.00-5.40); WHITE BLOOD COUNT 7.2 10^3/uL (4.0-10.0)
[2021-02-23 14:11] LABS: BLOOD UREA NITROGEN 14 MG/DL (7-18); CALCIUM LEVEL 9.1 MG/DL (8.5-10.1); CARBON DIOXIDE LEVEL 26 MEQ/L (21-32); CHLORIDE LEVEL 112 MEQ/L (98-107); CREATININE FOR GFR 0.68 MG/DL (0.55-1.30); GLOMERULAR FILTRATION RATE > 60.0 (>60); GLUCOSE, FASTING 85 MG/DL (70-100); SODIUM LEVEL 144 MEQ/L (136-145)
== END ==
LOC: M SFHCLERA 10:07
PROVIDERS: ATTEND Nurse Practitioner Family
DX: N64.4 Mastodynia (principal)

== ENCOUNTER → 2021-02-27 | Outpatient (CLI) | payer OTHER ==
--- NOTE | 2021-02-27 16:53 | REP ---
INDICATION: MARTIN DIAG MAMMO/N64.4/R BREAST PAIN; N64.4 R BREAST PAIN. Patient reports transient subareolar right breast pain which is now gone away. COMPARISON: no comparison breast imaging. TECHNIQUE: Bilateral CC and MLO) view(s) were taken. A true mediolateral view of the right breast and a magnified focal spot-compression CC view of the right breast were obtained. 3D tomography was utilized. Whole breast, right breast sonography was performed. FINDINGS: Scattered fibroglandular elements are seen bilaterally. There is a small zone of a slightly asymmetric normal appearing breast parenchyma medially on the CC view. This is not apparent on orthogonal views. No suspicious or dominant density is seen. No microcalcification or architectural distortion is seen. No worrisome skin change is appreciated. 3-D tomosynthesis shows no suspicious or additional finding. The Volpara volumetric breast density pattern is B. Whole breast sonography, right side: Whole breast sonography demonstrates heterogeneous fibroglandular background echotexture. No cyst or solid mass lesion is observed. No acoustic shadowing or other suspicious finding.. IMPRESSION: BIRADS/ACR category 2 benign mammographic and right breast sonographic findings. This patient's Tyrer-Cuzick lifetime breast cancer risk assessment score is 14.2%. This mammogram was interpreted with the aid of an FDA-approved computer-aided detection system. The patient states she had a clinical breast exam in M2. The patient letter being requested is M1. RECOMMENDATION: Repeat screening mammography recommended 1 year (for women over 40). Clinical follow-up. <Electronically signed by Rocco Kelly > 02/27/21 [id number]
== END ==
LOC: M WHC 14:36
PROVIDERS: ATTEND Nurse Practitioner Family
DX: N64.4 Mastodynia (principal)
CPT/HCPCS: 76641; 77066; G0279

== ENCOUNTER → 2021-06-04 | Outpatient (CLI) | payer OTHER ==
--- NOTE | 2021-06-04 15:19 | REP ---
INDICATION: PAIN COMPARISON: None. TECHNIQUE: Internal rotation, external rotation, and Y view. FINDINGS: No acute fracture or dislocation. The acromioclavicular and glenohumeral joints are intact. No periarticular calcifications or degenerative changes are appreciated. Sub acromial space is normal. Surrounding soft tissues are unremarkable. IMPRESSION: Normal age-appropriate right shoulder radiographs. <Electronically signed by Davis Leonard > 06/04/21 [id number]
== END ==
LOC: M WUC 15:00
PROVIDERS: ATTEND Family Medicine
DX: M25.511 Pain in right shoulder (principal)

== ENCOUNTER → 2021-09-06 | Outpatient (CLI) | payer OTHER | LOC: M WHC 07:11 | PROVIDERS: ATTEND Family Medicine | DX: B19.20 Unspecified viral hepatitis C without hepatic coma (principal) ==

== ENCOUNTER → 2021-09-06 | Outpatient (CLI) | payer OTHER ==
[2021-09-06 10:36] LABS: BASO % 0.5 % (0.0-1.0); EOS # 0.1 10^3/uL (0.0-0.5); EOS % 1.7 % (0.0-3.0); HEMATOCRIT 41.2 % (36.0-47.0); HEMOGLOBIN 13.8 g/dl (12.0-15.5); LYMPH # 1.9 10^3/uL (1.5-5.0); LYMPH % 24.6 % (24.0-44.0); MEAN CORPUSCULAR HEMOGLOBIN 28.4 pg (27.0-33.0); MEAN CORPUSCULAR HGB CONC 33.5 g/dl (32.0-36.5); MEAN CORPUSCULAR VOLUME 84.8 fl (80.0-96.0); MONO # 0.7 10^3/uL (0.0-0.8); MONO % 8.8 % (2.0-8.0); NEUTROPHILS # 4.8 10^3/uL (1.5-8.5); NEUTROPHILS % 64.1 % (36.0-66.0); PLATELET COUNT, AUTOMATED 320 10^3/uL (150-450); RED BLOOD COUNT 4.86 10^6/uL (4.00-5.40); WHITE BLOOD COUNT 7.5 10^3/uL (4.0-10.0)
[2021-09-06 10:59] LABS: ALBUMIN 3.9 GM/DL (3.2-5.2); ALT/SGPT 23 U/L (12-78); BILIRUBIN,TOTAL 0.3 MG/DL (0.2-1.0); BLOOD UREA NITROGEN 20 MG/DL (7-18); CALCIUM LEVEL 9.4 MG/DL (8.5-10.1); CARBON DIOXIDE LEVEL 27 MEQ/L (21-32); CHLORIDE LEVEL 110 MEQ/L (98-107); CHOLESTEROL LEVEL 209 MG/DL (<200); CHOLESTEROL RISK RATIO 4.265 (<5); CREATININE FOR GFR 0.77 MG/DL (0.55-1.30); GLOMERULAR FILTRATION RATE > 60.0 (>60); GLUCOSE, FASTING 97 MG/DL (70-100); HDL CHOLESTEROL 49 MG/DL (>40); LDL CHOLESTEROL 143 MG/DL (<100); NON-HDL-C 160 MG/DL; POTASSIUM SERUM 4.3 MEQ/L (3.5-5.1); SODIUM LEVEL 142 MEQ/L (136-145); TOTAL PROTEIN 7.7 GM/DL (6.4-8.2); TRIGLYCERIDES LEVEL 83 MG/DL (<150)
== END ==
LOC: M PLALAB 08:01
PROVIDERS: ATTEND Family Medicine
DX: E11.9 Type 2 diabetes mellitus without complications (principal)

== ENCOUNTER → 2021-09-13 | Outpatient (REF) | LOC: M LABSMTC 09:36 | PROVIDERS: ATTEND Pediatrics | DX: Z11.52 Encounter for screening for COVID-19 (principal) ==

== ENCOUNTER → 2023-11-19 | Outpatient (CLI) | payer OTHER | LOC: M PLAIMG 07:38 | PROVIDERS: ATTEND Family Medicine | DX: M79.89 Other specified soft tissue disorders (principal) ==

== ENCOUNTER → 2024-02-25 | Outpatient (CLI) | payer OTHER ==
[2024-02-25 15:08] LABS: RHEUMATOID FACTOR QUANT < 3.5 IU/ML (<14)
[2024-02-25 15:09] LABS: THYROXINE (T4) 6.7 UG/DL (4.5-10.9); VITAMIN B12 LEVEL 559 PG/ML (211-911)
[2024-02-25 15:10] LABS: FOLATE 15.8 NG/ML (>5.4); FREE THYROXINE INDEX 2.1 % (1.3-4.8); T UPTAKE 31.6 % (22.5-37.0)
[2024-02-26 10:57] LABS: ANA SCREEN, IFA NEGATIVE (NEGATIVE)
[2024-02-26 13:02] LABS: CYCLIC CITRULLINATED PEPTIDE < 16 UNITS (<20)
== END ==
LOC: M PLALAB 10:54
PROVIDERS: ATTEND Psychiatry & Neurology Neurology
DX: M54.59 Other low back pain (principal); M25.559 Pain in unspecified hip

== ENCOUNTER → 2025-04-20 | Outpatient (REF) | payer OTHER ==
[2025-04-20 17:34] LABS: BASO # 0.1 10^3/uL (0.0-0.2); BASO % 0.7 % (0.0-1.0); EOS # 0.1 10^3/uL (0.0-0.5); EOS % 1.0 % (0.0-3.0); LYMPH # 1.3 10^3/uL (1.5-5.0); LYMPH % 19.4 % (24.0-44.0); MONO # 0.7 10^3/uL (0.0-0.8); MONO % 9.6 % (2.0-8.0); NEUTROPHILS # 4.6 10^3/uL (1.5-8.5); NEUTROPHILS % 69.0 % (36.0-66.0); PLATELET COUNT, AUTOMATED 339 10^3/uL (150-450)
[2025-04-20 17:38] LABS: ALT/SGPT 18 U/L (7.0-40); AST/SGOT 15 U/L (<34); CALCIUM LEVEL 8.9 MG/DL (8.5-10.1); CARBON DIOXIDE LEVEL 28 MMOL/L (20-31); CHLORIDE LEVEL 103 MMOL/L (98-107); CREATININE FOR GFR 0.50 MG/DL (0.55-1.30); GLOMERULAR FILTRATION RATE > 90.0 (>58); POTASSIUM SERUM 3.5 MMOL/L (3.5-5.1); SODIUM LEVEL 141 MMOL/L (136-145)
== END ==
LOC: M SFHCLERA 10:31
PROVIDERS: ATTEND Family Medicine
DX: Z01.84 Encounter for antibody response examination (principal)